=== PATIENT | male | born 1945 | race Caucasian/White ===

== ENCOUNTER → 2018-07-05 | Outpatient (CLI) | payer MEDICARE ==
--- NOTE | 2018-07-05 12:37 | CT ---
EXAMINATION TYPE: CT brain w con DATE OF EXAM: 07/05/2018 COMPARISON: None INDICATION: History of TIA, vision changes. DLP: 1201 mGycm, Automated exposure control for dose reduction was used. CONTRAST: 100 mL [id number]-300 [address] of the brain is performed utilizing 3 mm thick sections through the posterior fossa and 3 mm thick sections through the remaining calvarium. Study is performed within 24 hours of arrival to the [facility]. Study is a postcontrast study. No abnormal hyperdensity is present to suggest an acute intracranial hemorrhage. No mass lesion is evident. No acute infarcts are evident. 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 There is periventricular white matter hypodensity likely on the basis of chronic white matter ischemic change s. Some watershed ischemic changes may be in the left parietal-occipital region. Old infarct within t he right occipital lobe is not excluded. This could be subacute. No mass effect on adjacent sulci is evident however. Ventricles and sulci are prominent for the patient age. There is a mucous retention cyst within the left maxillary sinus. Posterior ethmoid air cell mucosal thickening is present. No suspicious enhancement is evident. IMPRESSIONS: 1. Atrophy with periventricular white matter ischemic changes. 2. Suggestion of old ischemic changes left watershed, right occipital lobe and right caudate head.
== END | disposition home or self-care (01) ==
LOC: RADCTMAIN 11:37
PROVIDERS: ATTEND Family Medicine
DX: G31.9 Degenerative disease of nervous system, unspecified (principal); I67.82 Cerebral ischemia; Z86.73 Personal history of transient ischemic attack (TIA), and cerebral infarction without residual deficits
CPT/HCPCS: 70460; Q9967

== ENCOUNTER → 2018-12-26 | Outpatient (CLI) | payer MEDICARE ==
--- NOTE | 2018-12-26 17:53 | US ---
EXAMINATION TYPE: US carotid duplex BILAT DATE OF EXAM: 12/26/2018 COMPARISON: NONE CLINICAL HISTORY: R42 dizziness. Dizziness, history of stroke EXAM MEASUREMENTS: RIGHT: Peak Systolic Velocity (PSV) cm/sec ----- Right CCA: 79.1 ----- Right ICA: ----- Right ECA: 200.9 ICA/CCA ratio: 0.7 RIGHT: End Diastole cm/sec ----- Right CCA: 13.4 ----- Right ICA: ----- Right ECA: 31.4 LEFT: Peak Systolic Velocity (PSV) cm/sec ----- Left CCA: 51.7 ----- Left ICA: 179.1 ----- Left ECA: 100.9 ICA/CCA ratio: 3.5 LEFT: End Diastole cm/sec ----- Left CCA: 15.8 ----- Left ICA: 81.5 ----- Left ECA: 12.8 VERTEBRALS (direction of flow): Right Vertebral: Antegrade Left Vertebral: Antegrade Rhythm: Normal Right ICA occluded, left ICA/CCA ratio 3.5 for 50 to 69% stenosis IMPRESSION: There is antegrade flow in the vertebral arteries. 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 There is elevated velocity left internal carotid artery that suggests 70% stenosis. Criteria for Assigning % of Stenosis / Diameter reduction (Estimation based on the indirect measurements of the internal carotid artery velocities (ICA PSV). 1. Normal (no stenosis)=ICA PSV < 125 cm/s: ratio < 2.0: ICA EDV<40 cm/s. 2. Less than 50% stenosis=ICA PSV < 125 cm/s: ratio < 2.0: ICA EDV<40 cm/s. 3. 50 to 69% stenosis=ICA PSV of 125 to 230 cm/s: ration 2.0 ? 4.0: ICA EDV 40-100 cm/s. 4. Greater than 70% stenosis to near occlusion= ICA PSV > 230 cm/s: ratio > 4.0: ICA EDV > 100 cm/s. 5. Near occlusion= ICA PSV velocities may be low or undetectable: variable ratio and ICA EDV. 6. Total occlusion=unable to detect flow.
== END | disposition home or self-care (01) ==
LOC: RADUSWWP 16:33
PROVIDERS: ATTEND Nurse Practitioner Family
DX: I65.21 Occlusion and stenosis of right carotid artery (principal)
CPT/HCPCS: 93880